=== PATIENT | male | born 1940 | race Two or more races ===

== ENCOUNTER 2022-05-30 16:37 | Emergency (ER) | payer MEDICARE, OTHER ==
--- NOTE | 2022-05-30 16:38 | NUR ---
Pt is sitting in ER waiting room, pending avaialble ER nurse & room @this time
--- NOTE | 2022-05-30 17:45 | NUR ---
called for triage,no answer
--- NOTE | 2022-05-30 17:55 | NUR ---
called for triage, no answer
--- NOTE | 2022-05-30 18:09 | NUR ---
called for triage, no answer
== END 2022-05-30 18:10 | disposition left against medical advice (07) ==
LOC: ER 17:01
DX: Z53.21 Procedure and treatment not carried out due to patient leaving prior to being seen by health care provider (principal)

== ENCOUNTER 2023-06-17 07:25 | Emergency (ER) | payer MEDICARE, OTHER ==
[~2023-06-17] VITALS: Ht 170.2 cm; Wt 79.8 kg
[2023-06-17] MEDS ORDERED: VALSARTAN PO (07:49)
[2023-06-17] MEDS ORDERED: DICL100G31 TP (07:49)
[2023-06-17] MEDS ORDERED: FURO40TA5 PO (07:49)
[2023-06-17] MEDS ORDERED: TAMS-3 PO (07:49)
[2023-06-17] MEDS ORDERED: INDO-12 PO (07:49)
[2023-06-17] MEDS ORDERED: FINA5TAB11 PO (07:49)
[2023-06-17] MEDS ORDERED: ASPI81TA31 PO (07:49)
[2023-06-17] MEDS ORDERED: METO-357 PO (07:49)
[2023-06-17] MEDS ORDERED: AMLODIPINE PO (07:49)
[2023-06-17] MEDS ORDERED: ROSU5TAB PO (07:49)
[2023-06-17] MEDS ORDERED: ALBUTEROL SULFATE 2.5 MG/3 ML NEBU NEB ONE (08:00)
[2023-06-17] MEDS ORDERED: IPRATROPIUM BROMIDE 0.5 MG/2.5 ML NEBU NEB ONE (08:00)
[2023-06-17 08:16] LABS: BASOPHILS % (AUTO) 0.6 % (0.0-2.0); EOSINOPHILS # (AUTO) 0.3 K/uL (0.0-0.7); HEMATOCRIT 41.4 % (36.7-47.1); HEMOGLOBIN 14.1 g/dL (12.5-16.3); LYMPHOCYTES # (AUTO) 0.8 K/uL (0.8-4.8); LYMPHOCYTES % (AUTO) 12.2 % (20.5-51.5); MEAN CORPUSCULAR HEMOGLOBIN 28.5 uug (23.8-33.4); MEAN CORPUSCULAR HGB CONC 34 g/dL (32.5-36.3); MEAN CORPUSCULAR VOLUME 83.8 fL (73.0-96.2); MONOCYTES # (AUTO) 0.6 K/uL (0.1-1.30); MONOCYTES % (AUTO) 9.6 % (0.0-11.0); NEUTROPHILS # (AUTO) 4.6 K/uL (1.8-8.9); NEUTROPHILS % (AUTO) 73.6 % (38.5-71.5); PLATELET COUNT (AUTO) 176 K/uL (152-348); RED BLOOD CELL COUNT(AUTO) 4.94 MIL/uL (4.06-5.63); RED CELL DISTRIBUTION WIDTH 16.8 % (12.1-16.2); WHITE BLOOD COUNT (AUTO) 6.2 K/uL (3.6-10.2)
[2023-06-17 08:21] LABS: DIFFERENTIAL COMMENT 1
[2023-06-17] MEDS ORDERED: DOCUSATE SODIUM 100 MG CAPSULE PO ONE (08:23)
[2023-06-17] MEDS ORDERED: ALBUTEROL SULFATE 2.5 MG/3 ML NEBU ONE (08:28)
[2023-06-17] MEDS ORDERED: IPRATROPIUM BROMIDE 0.5 MG/2.5 ML NEBU ONE (08:29)
[2023-06-17 08:33] VITALS: O2SAT 95
[2023-06-17 08:37] LABS: CALCIUM 8.8 mg/dL (8.5-10.1); CARBON DIOXIDE 28 mmol/L (21-32); CHLORIDE 100 mmol/L (98-107); CREATININE 1.1 mg/dL (0.6-1.3); GLUCOSE 112 mg/dL (74-106); POTASSIUM 4.5 mmol/L (3.5-5.1); SODIUM SERUM 134 mmol/L (136-145); UREA NITROGEN, BLOOD 16 mg/dL (7-18)
[2023-06-17 08:50] LABS: NT-PRO BNP 417 pg/mL (0-125)
[2023-06-17 09:33] VITALS: O2SAT 99
[2023-06-17] MEDS ORDERED: ALBU18HF2 INH (09:45)
[2023-06-17] MEDS ORDERED: PRED20TA PO (09:45)
[2023-06-17] MEDS ORDERED: FLUT12AE5 INH (09:45)
[2023-06-17] MEDS ORDERED: GUAI120L56 PO (09:45)
[2023-06-17 10:30] VITALS: BP 135/84; TEMP 98.3; O2SAT 98
== END 2023-06-17 10:31 | disposition home or self-care (01) ==
LOC: ER 07:25
DX: J45.909 Unspecified asthma, uncomplicated (principal); H61.21 Impacted cerumen, right ear; Z79.82 Long term (current) use of aspirin; Z79.899 Other long term (current) drug therapy
CPT/HCPCS: 36415; 71045; 83735; 84484; 85025; 93005; 94760; A4606; A4663; J3590

== ENCOUNTER 2024-07-01 11:53 | Emergency (ER) | payer MEDICARE, OTHER ==
[~2024-07-01] VITALS: Ht 167.6 cm; Wt 85.3 kg
[~2024-07-01 11:53] MED LIST: ALBU18HF2 INH; AMLODIPINE PO; ASPI81TA31 PO; DICL100G31 TP; FINA5TAB11 PO; FLUT12AE5 INH; FURO40TA5 PO; GUAI120L56 PO; INDO-12 PO; METO-357 PO; PRED20TA PO; ROSU5TAB PO; TAMS-3 PO; VALSARTAN PO
[2024-07-01 12:32] LABS: BASOPHILS % (AUTO) 0.7 % (0.0-2.0); DIFFERENTIAL COMMENT 1; EOSINOPHILS # (AUTO) 0.3 K/uL (0.0-0.7); EOSINOPHILS % (AUTO) 6.5 % (0.0-7.0); HEMATOCRIT 33.1 % (36.7-47.1); HEMOGLOBIN 11.6 g/dL (12.5-16.3); LYMPHOCYTES # (AUTO) 0.6 K/uL (0.8-4.8); LYMPHOCYTES % (AUTO) 11.9 % (20.5-51.5); MEAN CORPUSCULAR HEMOGLOBIN 30.2 uug (23.8-33.4); MEAN CORPUSCULAR HGB CONC 35 g/dL (32.5-36.3); MEAN CORPUSCULAR VOLUME 86.1 fL (73.0-96.2); MONOCYTES # (AUTO) 0.6 K/uL (0.1-1.30); MONOCYTES % (AUTO) 12.6 % (0.0-11.0); NEUTROPHILS # (AUTO) 3.2 K/uL (1.8-8.9); NEUTROPHILS % (AUTO) 68.3 % (38.5-71.5); PLATELET COUNT (AUTO) 187 K/uL (152-348); RED BLOOD CELL COUNT(AUTO) 3.84 MIL/uL (4.06-5.63); RED CELL DISTRIBUTION WIDTH 16.2 % (12.1-16.2); WHITE BLOOD COUNT (AUTO) 4.6 K/uL (3.6-10.2)
[2024-07-01 12:44] LABS: ALANINE AMINOTRANSFERASE 23 U/L (16-63); ALBUMIN 3.4 g/dL (3.4-5.0); ALKALINE PHOSPHATASE 55 U/L (50-136); ASPARTATE AMINOTRANSFERASE 12 U/L (15-37); BILIRUBIN,TOTAL 0.7 mg/dL (0.2-1.0); CALCIUM 8.6 mg/dL (8.5-10.1); CARBON DIOXIDE 31 mmol/L (21-32); CHLORIDE 103 mmol/L (98-107); CREATININE 1.2 mg/dL (0.6-1.3); GLUCOSE 100 mg/dL (74-106); MAGNESIUM 2.1 mg/dL (1.8-2.4); POTASSIUM 4.9 mmol/L (3.5-5.1); SODIUM SERUM 141 mmol/L (136-145); TOTAL PROTEIN, SERUM 7.1 g/dL (6.4-8.2); UREA NITROGEN, BLOOD 21 mg/dL (7-18)
[2024-07-01] MEDS ORDERED: HYDROCODONE/APAP 10-325 MG TABLET ONE (13:01)
[2024-07-01] MEDS: HYDROCODONE/APAP 10-325 MG TABLET PO ONE (13:04)
[2024-07-01] MEDS ORDERED: POTA25TA7 PO (14:11)
[2024-07-01] MEDS ORDERED: FURO40TA5 PO (14:11)
[2024-07-01] MEDS ORDERED: HYDR-3980 PO (14:11)
[2024-07-01 15:00] VITALS: BP 135/75; O2SAT 99
== END 2024-07-01 15:01 | disposition home or self-care (01) ==
LOC: ER 11:54
DX: R07.9 Chest pain, unspecified (principal); I50.9 Heart failure, unspecified; R09.89 Other specified symptoms and signs involving the circulatory and respiratory systems; Z79.51 Long term (current) use of inhaled steroids; Z79.52 Long term (current) use of systemic steroids; Z79.82 Long term (current) use of aspirin; Z79.899 Other long term (current) drug therapy; Z85.46 Personal history of malignant neoplasm of prostate
CPT/HCPCS: 36415; 71045; 72072; 83735; 85025; A4606; A4663